=== PATIENT | female | born 1980 | race African-American/Black ===

== ENCOUNTER 2020-04-26 12:36 | Inpatient (IN) | payer BC, OTHER ==
[2020-04-26] MEDS ORDERED: ACETAMINOPHEN TAB 500 MG TAB PO STA (12:53)
--- NOTE | 2020-04-26 13:03 | ED ---
Weakness HPI - General Chief complaint: Weakness Stated complaint: Possible Pneumonia Time Seen by Provider: 04/26/20 12:46 Source: patient, RN notes reviewed Mode of arrival: ambulatory Limitations: no limitations - History of Present Illness Initial comments: This a 40-year-old female presents emergency Department chief complaint of shortness breath, fever, weakness. Patient states that she started having symptoms 8 days ago. She states that she works at [employer] who has a large amount Covid patients. Patient states that she's been so weak that she has not been tested anymore. She states that she's felt short breath, nauseated she did not take any current prescription medications. Denies any known history of lung disease. Patient has not taken any recent Tylenol Motrin for fever. - Related Data Home Medications Medication Instructions Recorded Confirmed No Known Home Medications 04/26/20 04/26/20 Allergies Allergy/AdvReac Type Severity Reaction Status Date / Time No Known Allergies Allergy Verified 04/26/20 20:21 Review of Systems ROS Statement: Those systems with pertinent positive or pertinent negative responses have been documented in the HPI. ROS Other: All systems not noted in ROS Statement are negative. Past Medical History Past Medical History: No Reported History History of Any Multi-Drug Resistant Organisms: None Reported Past Surgical History: Section Past Anesthesia/Blood Transfusion Reactions: No Reported Reaction Past Psychological History: No Psychological Hx Reported Past Alcohol Use History: None Reported Past Drug Use History: None Reported General Exam Limitations: no limitations General appearance: alert, in no apparent distress Head exam: Present: atraumatic, normocephalic, normal inspection Eye exam: Present: normal appearance, PERRL, EOMI. Absent: scleral icterus, conjunctival injection, periorbital swelling ENT exam: Present: normal exam, normal oropharynx, mucous membranes moist Neck exam: Present: normal inspection, full ROM. Absent: tenderness, meningismus, lymphadenopathy Respiratory exam: Present: decreased breath sounds. Absent: normal lung sounds bilaterally, respiratory distress, wheezes, rales, rhonchi, stridor Cardiovascular Exam: Present: normal rhythm, tachycardia, normal heart sounds. Absent: systolic murmur, diastolic murmur, rubs, gallop, clicks GI/Abdominal exam: Present: soft, normal bowel sounds. Absent: distended, tenderness, guarding, rebound, rigid Neurological exam: Present: alert Skin exam: Present: warm, dry, intact, normal color. Absent: rash Course Vital Signs 04/26/20 04/26/20 04/26/20 12:38 14:21 17:34 Temperature 100.5 F H 101.4 F H 98.4 F Pulse Rate 118 H 100 Respiratory 18 18 Rate Blood Pressure 111/71 106/64 O2 Sat by Pulse 82 L 99 Oximetry EKG Findings - EKG Comments: EKG Findings:: EKG for performed at 12:51 sinus tachycardia rate of 119. 128 QRS 82 QT/QTC 320/450 Medical Decision Making - Medical Decision Making Chest x-ray shows diffuse infiltrates. Patient is positive for covid 19. Patient's found to be acutely hypoxic improved on oxygen. Patient was given dexamethasone. Patient will be admitted for pulmonary and infectious disease consult. - Lab Data Result diagrams: 04/26/20 13:31 04/26/20 13:31 Lab Results 04/26/20 04/26/20 04/26/20 Range/Units 12:54 13:31 13:31 WBC 7.0 (3.8-10.6) k/uL RBC 4.99 (3.80-5.40) m/uL Hgb 9.0 L (11.4-16.0) gm/dL Hct 31.2 L (34.0-46.0) % MCV 62.5 L (80.0-100.0) fL MCH 18.0 L (25.0-35.0) pg MCHC 28.8 L (31.0-37.0) g/dL RDW 20.5 H (11.5-15.5) % Plt Count 296 (150-450) k/uL MPV 7.9 Neutrophils % 79 % Lymphocytes % 11 % Monocytes % 8 % Eosinophils % 0 % Basophils % 1 % Neutrophils # 5.6 (1.3-7.7) k/uL Lymphocytes # 0.8 L (1.0-4.8) k/uL Monocytes # 0.5 (0-1.0) k/uL Eosinophils # 0.0 (0-0.7) k/uL Basophils # 0.0 (0-0.2) k/uL Manual Slide Review Performed Hypochromasia Marked Hypochromasia (manual) Present Poikilocytosis Slight Anisocytosis Moderate Microcytosis Marked Target Cells Present Fragmented RBCs Present PT 10.3 (9.0-12.0) sec INR 1.0 (<1.2) APTT 24.3 (22.0-30.0) sec D-Dimer 1.64 H (<0.60) mg/L FEU Sodium (137-145) mmol/L Potassium (3.5-5.1) mmol/L Chloride (98-107) mmol/L Carbon Dioxide (22-30) mmol/L Anion Gap mmol/L BUN (7-17) mg/dL Creatinine (0.52-1.04) mg/dL Est GFR (CKD-EPI)AfAm (>60 ml/min/1.73 sqM) Est GFR (CKD-EPI)NonAf (>60 ml/min/1.73 sqM) Glucose (74-99) mg/dL Plasma Lactic Acid Moreno (0.7-2.0) mmol/L Calcium (8.4-10.2) mg/dL Magnesium (1.6-2.3) mg/dL Total Bilirubin (0.2-1.3) mg/dL AST (14-36) U/L ALT (4-34) U/L Alkaline Phosphatase (38-126) U/L C-Reactive Protein (<10.0) mg/L Total Protein (6.3-8.2) g/dL Albumin (3.5-5.0) g/dL Coronavirus (PCR) Detected A (Not Detectd) 04/26/20 04/26/20 Range/Units 13:31 13:31 WBC (3.8-10.6) k/uL RBC (3.80-5.40) m/uL Hgb (11.4-16.0) gm/dL Hct (34.0-46.0) % MCV (80.0-100.0) fL MCH (25.0-35.0) pg MCHC (31.0-37.0) g/dL RDW (11.5-15.5) % Plt Count (150-450) k/uL MPV Neutrophils % % Lymphocytes % % Monocytes % % Eosinophils % % Basophils % % Neutrophils # (1.3-7.7) k/uL Lymphocytes # (1.0-4.8) k/uL Monocytes # (0-1.0) k/uL Eosinophils # (0-0.7) k/uL Basophils # (0-0.2) k/uL Manual Slide Review Hypochromasia Hypochromasia (manual) Poikilocytosis Anisocytosis Microcytosis Target Cells Fragmented RBCs PT (9.0-12.0) sec INR (<1.2) APTT (22.0-30.0) sec D-Dimer (<0.60) mg/L FEU Sodium 137 (137-145) mmol/L Potassium 4.2 (3.5-5.1) mmol/L Chloride 101 (98-107) mmol/L Carbon Dioxide 32 H (22-30) mmol/L Anion Gap 4 mmol/L BUN 27 H (7-17) mg/dL Creatinine 1.68 H (0.52-1.04) mg/dL Est GFR (CKD-EPI)AfAm 44 (>60 ml/min/1.73 sqM) Est GFR (CKD-EPI)NonAf 38 (>60 ml/min/1.73 sqM) Glucose 135 H (74-99) mg/dL Plasma Lactic Acid Moreno 1.3 (0.7-2.0) mmol/L Calcium 7.8 L (8.4-10.2) mg/dL Magnesium 2.4 H (1.6-2.3) mg/dL Total Bilirubin 0.5 (0.2-1.3) mg/dL AST 40 H (14-36) U/L ALT 7 (4-34) U/L Alkaline Phosphatase 54 (38-126) U/L C-Reactive Protein 83.3 H (<10.0) mg/L Total Protein 6.6 (6.3-8.2) g/dL Albumin 3.1 L (3.5-5.0) g/dL Coronavirus (PCR) (Not Detectd) Disposition Clinical Impression: COVID-19, Hypoxia Disposition: ADMITTED IP TO THIS HOSP Condition: Serious
[2020-04-26] MEDS ORDERED: DEXAMETHASONE SOD PHOSPHATE 4 MG/ML 1 ML VIAL IV STA (13:33)
--- NOTE | 2020-04-26 13:54 | XR ---
EXAMINATION TYPE: XR chest 1V portable DATE OF EXAM: 04/26/2020 COMPARISON: None INDICATION: Cough and congestion TECHNIQUE: Single frontal view of the chest is obtained. FINDINGS: The heart size is somewhat prominent. The pulmonary vasculature is normal. Patchy bilateral lung infiltrates are present can be compatible with atypical pneumonia in the proper clinical setting. IMPRESSION: 1. Bilateral infiltrates suspicious for atypical pneumonia
[2020-04-26] MEDS ORDERED: NALOXONE 0.4 MG/ML 1 ML VIAL IV PRN (14:15)
[2020-04-26] MEDS ORDERED: IBUPROFEN 400 MG TAB PO PRN (14:15)
[2020-04-26] MEDS ORDERED: ACETAMINOPHEN TAB 325 MG TAB PO PRN (14:15)
[2020-04-26] MEDS ORDERED: ONDANSETRON 4 MG/2 ML VIAL IVP PRN (14:15)
[2020-04-26] MEDS: ZINC SULFATE 220 MG CAP PO SCH (14:32)
[2020-04-26 14:35] LABS: Albumin 3.1 g/dL (3.5-5.0); C Reactive Protein 83.3 mg/L (<10.0); Calcium 7.8 mg/dL (8.4-10.2); Magnesium 2.4 mg/dL (1.6-2.3); Potassium 4.2 mmol/L (3.5-5.1); Total Bilirubin 0.5 mg/dL (0.2-1.3); Total Protein 6.6 g/dL (6.3-8.2)
[2020-04-26 14:45] LABS: Partial Thromboplastin Time 24.3 sec (22.0-30.0); Prothrombin Time 10.3 sec (9.0-12.0)
[2020-04-26 14:48] LABS: Anisocytosis Moderate; Basophils % (A) 1 %; Eosinophils % (A) 0 %; HCT 31.2 % (34.0-46.0); Hypochromasia Marked; Lymphocytes # (A) 0.8 k/uL (1.0-4.8); Lymphocytes % (A) 11 %; MCHC 28.8 g/dL (31.0-37.0); MCV 62.5 fL (80.0-100.0); Mean Platelet Volume 7.9; Microcytosis Marked; Monocytes # (A) 0.5 k/uL (0-1.0); Monocytes % (A) 8 %; Neutrophils # (A) 5.6 k/uL (1.3-7.7); Neutrophils % (A) 79 %; Platelet Count 296 k/uL (150-450); Poikilocytosis Slight; RBC 4.99 m/uL (3.80-5.40); RDW 20.5 % (11.5-15.5)
[2020-04-26 14:53] LABS: D-Dimer 1.64 mg/L FEU (<0.60)
[2020-04-26 15:13] LABS: Hypochromasia (M) Present; RBC Fragments Present; Target Cells Present
[2020-04-26] MEDS ORDERED: SODIUM CHLORIDE 0.9% 500 ML 500 ML IV ONE (15:15)
[2020-04-26] MEDS: SODIUM CHLORIDE 0.9% 1,000 ML IV SCH (15:36)
[2020-04-27] MEDS ORDERED: REMDESIVIR 200 MG in SODIUM CHLORIDE 0.9% 250 ML IVPB ONE ×2
[2020-04-27] MEDS: ENOXAPARIN 40 MG/0.4 ML SYRINGE SQ SCH ×2 (00:22→08:46)
[2020-04-27] MEDS: SODIUM CHLORIDE 0.9% 1,000 ML IV SCH ×2 (00:22→17:17)
--- NOTE | 2020-04-27 07:12 | CONS ---
CONSULTATION DATE OF SERVICE: 04/26/2020 REASON FOR CONSULTATION: COVID-19 infection. HISTORY OF PRESENT ILLNESS: The patient is a 40-year-old female presenting to the hospital with chief complaints of increasing shortness of breath, fever and weakness. The patient's symptoms have been going on for about 8 days before the patient presented to the hospital. 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 Patient complaining of feeling very weak, tired and no energy. Patient denies any headache or URI symptoms. She has been complaining of shortness of breath on minimal exertion and has felt nauseated but no vomiting and denies having any diarrhea. The patient has been taking some Motrin for her fever with progressive symptoms. Patient did present to the hospital. On arrival to the ER the patient did have a fever of 101.4 degrees Fahrenheit. The patient was hypoxic with O2 sats of 82% on room air, currently 91% on 3 L nasal cannula. The patient did have a normal white count. Did have lymphopenia. D-dimer was elevated. Creatinine was mildly elevated as well as liver enzymes. Mathias PCR came back positive. The patient did have a chest x- ray bilateral infiltrate so patient with atypical pneumonia. The patient has been admitted to the hospital. Infectious Disease was consulted for further management. REVIEW OF SYSTEMS: Positive points have been mentioned in HPI. Rest of systems are negative. PAST MEDICAL HISTORY: No major illnesses. PAST SURGICAL HISTORY: . SOCIAL HISTORY: The patient denies smoking, drinking, drug use. FAMILY HISTORY: No pertinent findings noticed. ALLERGIES: No known drug allergies. MEDICATIONS: The patient is currently on Tylenol, vitamin C, vitamin D3, dexamethasone, ibuprofen, Narcan, Zofran, IV fluid and zinc sulfate. PHYSICAL EXAMINATION: VITAL SIGNS: Blood pressure 120/58 with a pulse of 89, temperature 97.8, T-max 101.4, she is 99% on 3 L nasal cannula. GENERAL DESCRIPTION: Patient is female lying in bed in no distress. HEENT: Examination shows no pallor or scleral icterus. Oral mucous membrane is dry. NECK: Trachea central, no thyromegaly. LUNGS: Unlabored breathing, coarse breath sounds at the bases bilaterally. No wheeze. HEART: S1-S2, regular rate and rhythm. ABDOMEN: Soft, no tenderness. No guarding or rigidity. EXTREMITIES: No edema of the feet. SKIN: No rash or mass palpable. NEUROLOGICAL: Patient is awake, alert, oriented times three. Mood and affect normal. LABS: Hemoglobin is 9, white count 7.0. D-dimer is 1.64, creatinine 1.68. AST is elevated. Mathias PCR is positive. DIAGNOSTIC IMPRESSION: Patient admitted to the hospital with a fever, hypoxemia. Symptoms have been going on for about a week in this patient with evidence of bilateral infiltrate likely secondary to acute COVID-19 infection. The patient does meet criteria for remdesivir therapy and this will help her, in view of the fever as well as hypoxemia. PLAN: 1. We will start the patient on remdesivir 100 mg x1 followed by 100 mg daily. The patient will be continued on dexamethasone, zinc and will add Lovenox. 2. Droplet isolation and respiratory support. 3. We will follow on her clinical condition and further adjust medication if needed. Thank you for this consultation. Will follow this patient along with you. YEMI / GROVERN: [id number] /
[2020-04-27] MEDS: CHOLECALCIFEROL 25 MCG (1000 IU) TABLET PO SCH (08:46)
[2020-04-27] MEDS: ZINC SULFATE 220 MG CAP PO SCH (08:46)
[2020-04-27] MEDS: DEXAMETHASONE SOD PHOSPHATE 10 MG/ML 1 ML VIAL IV SCH (08:46)
[2020-04-27] MEDS: ASCORBIC ACID 500 MG TAB PO SCH (08:46)
--- NOTE | 2020-04-27 15:44 | P.CNPUL ---
History of Present Illness Consult date: 04/27/20 Requesting physician: Josie Serrano Reason for consult: dyspnea Chief complaint: Shortness of breath, fever, weakness History of present illness: This is a very pleasant 40-year-old obese female patient with no significant past medical history. No home medications. 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 Approximately 9 days ago now she started having increasing shortness of breath, cough, congestion, fever. Chest x-ray reveals bilateral infiltrates suspicious for CoVID 19 pneumonia. She did test positive for the coronavirus. White count 7.0. Hemoglobin 9.0. Lymphocytes 0.8. D-dimer 1.64. Sodium 137. Potassium 4.2. Creatinine 1.68. C-reactive protein 83.3. He is seen today in consultation on the regular medical floor. She is currently resting in bed. Awake and alert in no acute distress. She is still quite dyspneic with minimal exertion. She is requiring 5 L high flow nasal cannula to maintain O2 saturations in the 90s. 0.9 normal saline at 75 ML's per hour. She had not received any vaccines. She was seen by ID services and received Remdesivir just after midnight this morning. She is initiated on Decadron, Lovenox, vitamin supplements. Review of Systems REVIEW OF SYSTEMS: CONSTITUTIONAL: Positive for fatigue weakness, fever. Denies any recent significant weight loss or weight gain. EYES: Denies change in vision. EARS, NOSE, MOUTH, THROAT: Denies headaches, denies sore throat. CARDIOVASCULAR: Denies chest pain, palpitations or syncopal episodes. RESPIRATORY: Positive for shortness of breath, cough, congestion no hemoptysis. GASTROINTESTINAL: Denies change in appetite, denies abdominal pain GENITOURINARY: Denies hematuria, denies infections. MUSKULOSKELETAL: Denies pain, denies swelling. INTEGUMENTARY: Denies rash, denies eczema. NEUROLOGICAL: Denies recent memory loss, no recent seizure activity. PSYCHIATRIC: Denies anxiety, denies depression. HEMATOLOGIC/LYMPHATIC: Denies anemia, denies enlarged lymph nodes. Past Medical History Past Medical History: No Reported History History of Any Multi-Drug Resistant Organisms: None Reported Past Surgical History: Section Additional Past Surgical History / Comment(s): hernia repair Past Anesthesia/Blood Transfusion Reactions: No Reported Reaction Past Psychological History: No Psychological Hx Reported Past Alcohol Use History: None Reported Past Drug Use History: None Reported Medications and Allergies Home Medications Medication Instructions Recorded Confirmed Type No Known Home Medications 04/26/20 04/26/20 History Allergies Allergy/AdvReac Type Severity Reaction Status Date / Time No Known Allergies Allergy Verified 04/26/20 20:21 Physical Exam Vitals: Vital Signs Temp Pulse Resp BP Pulse Ox 04/27/20 14:00 98.5 F 92 20 118/79 96 04/27/20 10:00 99.0 F 95 22 130/84 90 L 04/27/20 08:00 94 L 04/27/20 05:49 98.4 F 86 19 138/80 93 L 04/27/20 02:24 98.5 F 89 125/68 91 L 04/26/20 22:05 97.8 F 89 21 120/58 91 L 04/26/20 18:00 98.7 F 97 20 115/74 92 L 04/26/20 17:34 98.4 F Intake and Output 04/27/20 04/27/20 04/27/20 06:59 14:59 22:59 Intake Total 600 Balance 600 Intake: IV 600 Sodium Chloride 0.9% 1, 600 000 ml @ 75 mls/hr IV . [id number] [facility] Rx#:[id number] Other: # Bowel Movements 2 GENERAL EXAM: Alert, obese, pleasant 40-year-old -[place] female patient, on 5 L nasal cannula, comfortable in no apparent distress. HEAD: Normocephalic. EYES: Normal reaction of pupils, equal size. NOSE: Clear with pink turbinates. THROAT: No erythema or exudates. NECK: No masses, no JVD. CHEST: No chest wall deformity. LUNGS: Equal air entry with bilateral scattered rhonchi, crackles in the posteri or bases. CVS: S1 and S2 normal with no audible murmur, regular rhythm. ABDOMEN: No hepatosplenomegaly, normal bowel sounds, no guarding or rigidity. SPINE: No scoliosis or deformity SKIN: No rashes CENTRAL NERVOUS SYSTEM: No focal deficits, tone is normal in all 4 extremities. EXTREMITIES: There is no peripheral edema. No clubbing, no cyanosis. Peripheral pulses are intact. Results - Laboratory Findings CBC and BMP: 04/26/20 13:31 04/26/20 13:31 PT/INR, D-dimer PT 10.3 sec (9.0-12.0) 04/26/20 13:31 INR 1.0 (<1.2) 04/26/20 13:31 D-Dimer 1.64 mg/L FEU (<0.60) H 04/26/20 13:31 Abnormal lab findings: Abnormal Labs 04/26/20 04/26/20 04/26/20 12:54 13:31 13:31 Hgb 9.0 L Hct 31.2 L MCV 62.5 L MCH 18.0 L MCHC 28.8 L RDW 20.5 H Lymphocytes # 0.8 L D-Dimer 1.64 H Carbon Dioxide BUN Creatinine Glucose Calcium Magnesium AST C-Reactive Protein Albumin Coronavirus (PCR) Detected A 04/26/20 13:31 Hgb Hct MCV MCH MCHC RDW Lymphocytes # D-Dimer Carbon Dioxide 32 H BUN 27 H Creatinine 1.68 H Glucose 135 H Calcium 7.8 L Magnesium 2.4 H AST 40 H C-Reactive Protein 83.3 H Albumin 3.1 L Coronavirus (PCR) - Diagnostic Findings Chest x-ray: image reviewed Assessment and Plan Assessment: 1 Acute hypoxemic respiratory failure secondary to acute CoVID 19 pneumonia 2 Elevated inflammatory markers secondary to above 3 Acute renal failure suspect secondary to dehydration 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 Sharma Chest x-ray and labs reviewed This will be day #2 of Remdesivir Continue Lovenox, dexamethasone, vitamins supplements Repeat chest x-ray, inflammatory markers in the a.m. Titrate the FiO2 as tolerated We will continue to follow and make further recommendations based on her clinical status I, the cosigning physician, performed a history & physical examination of the patient. Lungs sounds with few scattered rhonchi, crackles in the posterior bases. Maintaining good O2 saturations in the 90s on 5 L/m per nasal cannula. I discussed the assessment and plan of care with my nurse practitioner, Fide Burch. I attest to the above consultation as dictated by her. Time with Patient: Greater than 30
--- NOTE | 2020-04-27 15:50 | P.HPIM ---
History of Present Illness H&P Date: 04/26/20 Chief Complaint: Weakness/possible pneumonia 40-year-old female presents emergency Department chief complaint of shortness breath, fever, weakness. Patient states that she started having symptoms 8 days ago. She states that she works at [employer] who has a large number of Covid patients. Patient states that she's been so weak that she has not been tested anymore. She states that she's felt short breath, nauseated she did not take any current prescription medications. Denies any known history of lung disease. Patient has not taken any recent Tylenol Motrin for fever. EKG performed sinus tachycardia rate of 119. 128 QRS 82 QT/QTC 320/450 Chest x-ray shows diffuse infiltrates. Patient is positive for covid 19. Patient's found to be acutely hypoxic improved on oxygen. Patient was given dexamethasone. Patient will be admitted for pulmonary and infectious disease consult. Review of Systems REVIEW OF SYSTEMS: CONSTITUTIONAL: fever, malaise, fatigue. HEENT: No recent visual problems or hearing problems. Denied any sore throat. CARDIOVASCULAR: No chest pain, orthopnea, PND, no palpitations, no syncope. PULMONARY: shortness of breath, no cough, no hemoptysis. GASTROINTESTINAL: No diarrhea, no nausea, no vomiting, no abdominal pain. NEUROLOGICAL: No headaches, no weakness, no numbness. HEMATOLOGICAL: Denies any bleeding or petechiae. GENITOURINARY: Denies any burning micturition, frequency, or urgency. MUSCULOSKELETAL/RHEUMATOLOGICAL: Denies any joint pain, swelling, or any muscle pain. ENDOCRINE: Denies any polyuria or polydipsia. The rest of the 14-point review of systems is negative. Past Medical History Past Medical History: No Reported History History of Any Multi-Drug Resistant Organisms: None Reported Past Surgical History: Section Past Anesthesia/Blood Transfusion Reactions: No Reported Reaction Past Psychological History: No Psychological Hx Reported Past Alcohol Use History: None Reported Past Drug Use History: None Reported Medications and Allergies Home Medications Medication Instructions Recorded Confirmed Type No Known Home Medications 04/26/20 04/26/20 History Allergies Allergy/AdvReac Type Severity Reaction Status Date / Time No Known Allergies Allergy Verified 04/26/20 20:21 Physical Exam Vitals: Vital Signs Temp Pulse Resp BP Pulse Ox 04/26/20 14:21 101.4 F H 100 18 106/64 99 04/26/20 12:38 100.5 F H 118 H 18 111/71 82 L Intake and Output 04/25/20 04/26/20 04/26/20 22:59 06:59 14:59 Other: Weight 127.006 kg - Constitutional General appearance: Present: average body habitus, cooperative, no acute distress - EENT Eyes: Present: anicteric sclerae, EOMI, PERRLA, normal appearance ENT: Present: hearing grossly normal, normal oropharynx Ears: bilateral: normal - Neck Neck: Present: normal ROM. Absent: lymphadenopathy, rigidity, thyromegaly Carotids: negative: bruit present Thyroid: bilateral: normal size, negative: enlarged, nodule - Respiratory Respiratory: bilateral: CTA, negative: rales, rhonchi, wheezing - Cardiovascular Rhythm: regular Heart sounds: normal: S1, S2 Abnormal Heart Sounds: Absent: systolic murmur, diastolic murmur - Gastrointestinal General gastrointestinal: Present: normal bowel sounds, soft. Absent: diste nded, organomegaly, tenderness - Genitourinary Genitourinary Comment(s): deferred - Integumentary Integumentary: Present: normal turgor. Absent: jaundiced, rash, ulcer - Neurologic Neurologic: Present: CNII-XII intact. Absent: focal deficits - Musculoskeletal Musculoskeletal: Present: gait normal, strength equal bilaterally - Psychiatric Psychiatric: Present: A&O x's 3, appropriate affect, intact judgment & insight Results CBC & Chem 7: 04/26/20 13:31 04/26/20 13:31 Labs: Abnormal Lab Results - Last 24 Hours (Table) 04/26/20 04/26/20 Range/Units 12:54 13:31 Carbon Dioxide 32 H (22-30) mmol/L BUN 27 H (7-17) mg/dL Creatinine 1.68 H (0.52-1.04) mg/dL Glucose 135 H (74-99) mg/dL Calcium 7.8 L (8.4-10.2) mg/dL Magnesium 2.4 H (1.6-2.3) mg/dL AST 40 H (14-36) U/L C-Reactive Protein 83.3 H (<10.0) mg/L Albumin 3.1 L (3.5-5.0) g/dL Coronavirus (PCR) Detected A (Not Detectd) Assessment and Plan Assessment: 1. Covid 19 Viral pneumonia - Patient has been placed on telemetry; continue with supplemental oxygen keeping SpO2 greater than 92% - Pulmonary and ID is consulted and patient is started on Remdesivir - Continue Lovenox, dexamethasone, vitamins supplements - Repeat chest x-ray, inflammatory markers in the a.m. - Titrate the FiO2 as tolerated 2. Acute hypoxemic respiratory failure secondary to 1; treatment as outlined in #1 3. Acute renal failure; dehydration; we'll continue with IV fluid therapy and monitor strict BISHOP's, daily weights, renal function and electrolytes; avoid nephrotoxic agents and hypertension 4. Morbid obesity; counseling done on need for weight reduction DVT prophylaxis; subcu Lovenox CODE STATUS; full code
--- NOTE | 2020-04-27 15:54 | P.PN ---
Subjective Progress Note Date: 04/27/20 Principal diagnosis: Acute hypoxemic respiratory failure Acute CoVID 19 pneumonia Acute renal failure/dehydration 40-year-old obese female patient with no significant past medical history. No home medications. 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 Approximately 9 days ago now she started having increasing shortness of breath, cough, congestion, fever. Chest x-ray reveals bilateral infiltrates suspicious for CoVID 19 pneumonia. She did test positive for the coronavirus. White count 7.0. Hemoglobin 9.0. Lymphocytes 0.8. D-dim er 1.64. Sodium 137. Potassium 4.2. Creatinine 1.68. C-reactive protein 83.3. He is seen today in consultation on the regular medical floor. She is currently resting in bed. Awake and alert in no acute distress. She is still quite dyspneic with minimal exertion. She is requiring 5 L high flow nasal cannula to maintain O2 saturations in the 90s. 0.9 normal saline at 75 ML's per hour. She had not received any vaccines. She was seen by ID services and received Remdesivir just after midnight this morning. She is initiated on Decadron, Lovenox, vitamin supplements. 04/27/2020 Patient is seen and evaluated resting comfortably in bed; continues to report shortness of breath which is worse on activity Vital signs are reviewed with temperature of 99, pulse 82, respiration 20 and SpO2 of 96% on 5 L She was seen by ID services and received Remdesivir just after midnight this morning. She is initiated on Decadron, Lovenox, vitamin supplements. Objective - Vital Signs Vital signs: Vital Signs Temp 99.0 F 04/27/20 10:00 Pulse 95 04/27/20 10:00 Resp 22 04/27/20 10:00 BP 130/84 04/27/20 10:00 Pulse Ox 90 L 04/27/20 10:00 Intake & Output 04/26/20 04/27/20 04/27/20 18:59 06:59 18:59 Weight 127.006 kg 127.006 kg Other: Voiding Method Toilet - Exam PHYSICAL EXAMINATION: GENERAL: The patient is alert and oriented x3, not in any acute distress. Well developed, well nourished. HEENT: Pupils are round and equally reacting to light. EOMI. No scleral icterus. No conjunctival pallor. Normocephalic, atraumatic. No pharyngeal erythema. No thyromegaly. CARDIOVASCULAR: S1 and S2 present. No murmurs, rubs, or gallops. PULMONARY: Chest is clear to auscultation, no wheezing or crackles. ABDOMEN: Soft, nontender, nondistended, normoactive bowel sounds. No palpable organomegaly. MUSCULOSKELETAL: No joint swelling or deformity. EXTREMITIES: No cyanosis, clubbing, or pedal edema. NEUROLOGICAL: Gross neurological examination did not reveal any focal deficits. SKIN: No rashes. - Labs CBC & Chem 7: 04/26/20 13:31 04/26/20 13:31 Labs: Abnormal Lab Results - Last 24 Hours (Table) 04/26/20 04/26/20 04/26/20 Range/Units 12:54 13:31 13:31 Hgb 9.0 L (11.4-16.0) gm/dL Hct 31.2 L (34.0-46.0) % MCV 62.5 L (80.0-100.0) fL MCH 18.0 L (25.0-35.0) pg MCHC 28.8 L (31.0-37.0) g/dL RDW 20.5 H (11.5-15.5) % Lymphocytes # 0.8 L (1.0-4.8) k/uL D-Dimer 1.64 H (<0.60) mg/L FEU Carbon Dioxide (22-30) mmol/L BUN (7-17) mg/dL Creatinine (0.52-1.04) mg/dL Glucose (74-99) mg/dL Calcium (8.4-10.2) mg/dL Magnesium (1.6-2.3) mg/dL AST (14-36) U/L C-Reactive Protein (<10.0) mg/L Albumin (3.5-5.0) g/dL Coronavirus (PCR) Detected A (Not Detectd) 04/26/20 Range/Units 13:31 Hgb (11.4-16.0) gm/dL Hct (34.0-46.0) % MCV (80.0-100.0) fL MCH (25.0-35.0) pg MCHC (31.0-37.0) g/dL RDW (11.5-15.5) % Lymphocytes # (1.0-4.8) k/uL D-Dimer (<0.60) mg/L FEU Carbon Dioxide 32 H (22-30) mmol/L BUN 27 H (7-17) mg/dL Creatinine 1.68 H (0.52-1.04) mg/dL Glucose 135 H (74-99) mg/dL Calcium 7.8 L (8.4-10.2) mg/dL Magnesium 2.4 H (1.6-2.3) mg/dL AST 40 H (14-36) U/L C-Reactive Protein 83.3 H (<10.0) mg/L Albumin 3.1 L (3.5-5.0) g/dL Coronavirus (PCR) (Not Detectd) Assessment and Plan Assessment: 1. Covid 19 Viral pneumonia - Patient has been placed on telemetry; continue with supplemental oxygen keeping SpO2 greater than 92% - Pulmonary and ID is consulted and patient is started on Remdesivir - Continue Lovenox, dexamethasone, vitamins supplements - Repeat chest x-ray, inflammatory markers in the a.m. - Titrate the FiO2 as tolerated 2. Acute hypoxemic respiratory failure secondary to 1; treatment as outlined in #1 3. Acute renal failure; dehydration; we'll continue with IV fluid therapy and monitor strict BISHOP's, daily weights, renal function and electrolytes; avoid nephrotoxic agents and hypertension 4. Morbid obesity; counseling done on need for weight reduction DVT prophylaxis; subcu Lovenox CODE STATUS; full code
[2020-04-27 20:02] LABS: Appearance,Urine Clear (Clear); Bacteria,Urine Rare /hpf; Bilirubin,Urine Negative (Negative); Blood,Urine Small (Negative); Cellular Casts,Urine 1 /lpf (0); Color,Urine Yellow; Glucose,Urine (UA) Negative (Negative); Hyaline Casts,Urine 4 /lpf (0-2); Ketones,Urine Negative (Negative); Leukocyte Esterase,Urine Negative (Negative); Mucus,Urine Rare /hpf; Nitrite,Urine Negative (Negative); Protein,Urine 3+ (Negative); RBC,Urine 4 /hpf (0-5); Specific Gravity,Urine 1.022 (1.001-1.035); Squamous Epithelial Cell,Urine <1 /hpf (0-4); Urobilinogen,Urine <2.0 mg/dL (<2.0); WBC,Urine 5 /hpf (0-5)
[2020-04-27] MEDS: MELATONIN 3 MG TABLET PO SCH (20:10)
[2020-04-27] MEDS: REMDESIVIR 100 MG in SODIUM CHLORIDE 0.9% 250 ML IVPB SCH (20:10)
--- NOTE | 2020-04-27 23:29 | PN ---
PROGRESS NOTE DATE OF SERVICE: 04/27/2020. REASON FOR FOLLOW UP: Covid 19 infection. INTERVAL HISTORY: Patient is currently afebrile and the patient is breathing slightly comfortably. The patient denies having any chest pain, no shortness of breath. She did have a cough, not bringing up any sputum. No nausea, no vomiting. No abdominal pain. No diarrhea. PHYSICAL EXAMINATION: Blood pressure 126/84 with a pulse of 80, temperature 98.3. She is 92% on 4 L nasal cannula. General description is a middle-aged female lying in bed in no distress. Respiratory system: Unlabored breathing, decreased intensity of breath sounds. No wheeze. Heart S1, S2. Regular rate and rhythm. Abdomen soft, no tenderness. LABS: BUN of 9, creatinine 7.0, BUN of 27, creatinine 1.68, hemoglobin 9, white count 7.0. DIAGNOSTIC IMPRESSION AND PLAN: Patient with acute COVID-19 infection. This patient currently covered with dexamethasone, Lovenox, zinc and respiratory support and monitor clinical course closely. MMODL / IJN: [id number] /
--- NOTE | 2020-04-28 07:20 | XR ---
EXAMINATION TYPE: XR chest 1V portable DATE OF EXAM: 04/28/2020 COMPARISON: 04/26/2020 HISTORY: Covid 19 pneumonia TECHNIQUE: Single frontal view of the chest is obtained. FINDINGS: Patchy perihilar and basilar infiltrates persist without significant change. The cardiac silhouette size is within normal limits. The osseous structures are intact. IMPRESSION: 1. Patchy perihilar and basilar infiltrates persist without significant change.
[2020-04-28] MEDS: CHOLECALCIFEROL 25 MCG (1000 IU) TABLET PO SCH (08:32)
[2020-04-28] MEDS: ZINC SULFATE 220 MG CAP PO SCH (08:32)
[2020-04-28] MEDS: ASCORBIC ACID 500 MG TAB PO SCH (08:32)
[2020-04-28] MEDS: DEXAMETHASONE SOD PHOSPHATE 10 MG/ML 1 ML VIAL IV SCH (08:32)
[2020-04-28] MEDS: ENOXAPARIN 40 MG/0.4 ML SYRINGE SQ SCH (08:33)
[2020-04-28] MEDS: SODIUM CHLORIDE 0.9% 1,000 ML IV SCH ×2 (08:33→21:36)
--- NOTE | 2020-04-28 12:00 | P.PN ---
Subjective Progress Note Date: 04/28/20 This is a very pleasant 40-year-old obese female patient with no significant past medical history. No home medications. 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 Approximately 9 days ago now she started having increasing shortness of breath, cough, congestion, fever. Chest x-ray reveals bilateral infiltrates suspicious for CoVID 19 pneumonia. She did test positive for the coronavirus. White count 7.0. Hemoglobin 9.0. Lymphocytes 0.8. D-dimer 1.64. Sodium 137. Potassium 4.2. Creatinine 1.68. C-reactive protein 83.3. He is seen today in consultation on the regular medical floor. She is currently resting in bed. Awake and alert in no acute distress. She is still quite dyspneic with minimal exertion. She is requiring 5 L high flow nasal cannula to maintain O2 saturations in the 90s. 0.9 normal saline at 75 ML's per hour. She had not received any vaccines. She was seen by ID services and received Remdesivir just after midnight this morning. She is initiated on Decadron, Lovenox, vitamin supplements. 04/28/2020 this patient was hospitalized for acute hypoxic respiratory failure secondary to obesity-related pneumonia and the patient is being seen in follow- up. The patient is currently on a combination of steroids in the form of Deca dron and the patient is also receiving Remdesivir. The patient is morbidly obese with a BMI of 40. The patient had an acute kidney injury at time of admission and currently is being hydrated. 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 Otherwise, the patient is currently on oxygen at 5 L of Oxymizer nasal cannula with a pulse ox of 91%. The chest x-ray showing bilateral infiltrates suspicious for pneumonia. The inflammatory markers will be monitored. The patient is also on Lovenox for DVT prophylaxis for d-dimer of 1.64. She is currently receiving Lovenox 40 mg subcu every 24 hours. The chest x-ray still showing bilateral pulmonary infiltrates. There may be some slight improvement in aeration of the lung bases bilaterally. There are renal function is to be repeated as the patient's creatinine at time of admission was at 1.68. The patient remains on IV fluids with 35 mL an hour of normal saline. Objective - Vital Signs Vital signs: Vital Signs Temp 98.0 F 04/28/20 09:45 Pulse 85 04/28/20 09:45 Resp 20 04/28/20 09:45 BP 144/86 04/28/20 09:45 Pulse Ox 96 04/28/20 09:45 Intake & Output 04/27/20 04/28/20 04/28/20 18:59 06:59 18:59 Intake Total 600 Balance 600 Intake: IV 600 Sodium Chloride 0.9% 1, 600 000 ml @ 75 mls/hr IV . [id number] [facility] Rx#:[id number] Other: Voiding Method Toilet # Voids 3 # Bowel Movements 2 - Exam GENERAL EXAM: Alert, obese, pleasant 40-year-old -[place] female patient, on 5 L nasal cannula, comfortable in no apparent distress. HEAD: Normocephalic. EYES: Normal reaction of pupils, equal size. NOSE: Clear with pink turbinates. THROAT: No erythema or exudates. NECK: No masses, no JVD. CHEST: No chest wall deformity. LUNGS: Equal air entry with bilateral scattered rhonchi, crackles in the posterior bases. CVS: S1 and S2 normal with no audible murmur, regular rhythm. ABDOMEN: No hepatosplenomegaly, normal bowel sounds, no guarding or rigidity. SPINE: No scoliosis or deformity SKIN: No rashes CENTRAL NERVOUS SYSTEM: No focal deficits, tone is normal in all 4 extremities. EXTREMITIES: There is no peripheral edema. No clubbing, no cyanosis. Peripheral pulses are intact. - Labs CBC & Chem 7: 04/26/20 13:31 04/26/20 13:31 Labs: Abnormal Lab Results - Last 24 Hours (Table) 04/27/20 04/28/20 Range/Units 19:01 07:38 D-Dimer 1.93 H (<0.60) mg/L FEU Urine Protein 3+ H (Negative) Urine Blood Small H (Negative) Urine Bacteria Rare H (None) /hpf Hyaline Casts 4 H (0-2) /lpf Urine Mucus Rare H (None) /hpf Microbiology - Last 24 Hours (Table) 04/27/20 19:01 Urine Culture - Preliminary Urine,Clean Catch Assessment and Plan Plan: 1 Acute hypoxemic respiratory failure secondary to acute CoVID 19 pneumonia, currently on 5 L of oxygen by nasal cannula. Currently the patient is on a combination of Decadron, Remdesivir, and the patient is also on Lovenox for DVT prophylaxis. 2 Elevated inflammatory markers secondary to above 3 Acute renal failure suspect secondary to dehydration, creatinine is at 1.68 and the patient is currently being hydrated. 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 Titrate the FiO2 as tolerated We will continue to follow and make further recommendations based on her clinical status
[2020-04-28 12:13] LABS: African American GFR (CKD) 57 (>60 ml/min/1.73 sqM); Anion Gap 9 mmol/L; Blood Urea Nitrogen 40 mg/dL (7-17); Carbon Dioxide 26 mmol/L (22-30); Chloride 105 mmol/L (98-107); Glucose 125 mg/dL (74-99); Non-African American GFR(CKD) 49 (>60 ml/min/1.73 sqM); Potassium 4.4 mmol/L (3.5-5.1); Sodium 140 mmol/L (137-145)
[2020-04-28 13:19] LABS: C Reactive Protein 5.7 mg/dL (0.0-0.8)
[2020-04-28 15:33] VITALS: BMI 40.1
[2020-04-28] MEDS: MELATONIN 3 MG TABLET PO SCH (20:28)
[2020-04-28] MEDS: REMDESIVIR 100 MG in SODIUM CHLORIDE 0.9% 250 ML IVPB SCH (20:28)
--- NOTE | 2020-04-28 23:32 | P.PN ---
Subjective Progress Note Date: 04/28/20 Principal diagnosis: Acute hypoxemic respiratory failure Acute CoVID 19 pneumonia Acute renal failure/dehydration 40-year-old obese female patient with no significant past medical history. No home medications. 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 Approximately 9 days ago now she started having increasing shortness of breath, cough, congestion, fever. Chest x-ray reveals bilateral infiltrates suspicious for CoVID 19 pneumonia. She did test positive for the coronavirus. White count 7.0. Hemoglobin 9.0. Lymphocytes 0.8. D-dimer 1.64. Sodium 137. Potassium 4.2. Creatinine 1.68. C-reactive protein 83.3. He is seen today in consultation on the regular medical floor. She is currently resting in bed. Awake and alert in no acute distress. She is still quite dyspneic with minimal exertion. She is requiring 5 L high flow nasal cannula to maintain O2 saturations in the 90s. 0.9 normal saline at 75 ML's per hour. She had not received any vaccines. She was seen by ID services and received Remdesivir just after midnight this morning. She is initiated on Decadron, Lovenox, vitamin supplements. 04/27/2020 Patient is seen and evaluated resting comfortably in bed; continues to report shortness of breath which is worse on activity Vital signs are reviewed with temperature of 99, pulse 82, respiration 20 and SpO2 of 96% on 5 L She was seen by ID services and received Remdesivir just after midnight this morning. She is initiated on Decadron, Lovenox, vitamin supplements. 04/28/2020 Patient is currently sitting in a chair comfortably. Awake alert and oriented x3. On oxygen at 5 L via nasal cannula. Chest x-ray showed bilateral infiltrates suspicious for pneumonia. Patient is being continued on remdesivir course. Also on Lovenox subcu, dexamethasone 6 mg daily and also on mult ivitamins. Continued on droplet and contact precautions. Laboratory data showed BUN 40 and creatinine 1.37. Patient is able to tolerate oral diet slowly and IV fluids will be changed to KVO. See have elevated inflammatory markers. D-dimer is 1.93 today. Pulmonary is on board. Current medications reviewed. Objective - Vital Signs Vital signs: Vital Signs Temp 98.0 F 04/28/20 14:00 Pulse 83 04/28/20 14:00 Resp 22 04/28/20 14:00 BP 131/75 04/28/20 14:00 Pulse Ox 97 04/28/20 14:00 Intake & Output 04/27/20 04/28/20 04/28/20 18:59 06:59 18:59 Intake Total 600 160 Balance 600 160 Weight 127.006 kg Intake: IV 600 160 Sodium Chloride 0.9% 1, 600 160 000 ml @ 20 mls/hr IV . Q24H [facility] Rx#:[id number] Other: Voiding Method Toilet # Voids 3 # Bowel Movements 2 - Exam PHYSICAL EXAMINATION: GENERAL: The patient is alert and oriented x3, not in any acute distress. Well developed, well nourished. HEENT: Pupils are round and equally reacting to light. EOMI. No scleral icterus. No conjunctival pallor. Normocephalic, atraumatic. No pharyngeal erythema. No thyromegaly. CARDIOVASCULAR: S1 and S2 present. No murmurs, rubs, or gallops. PULMONARY: Chest is clear to auscultation, no wheezing or crackles. ABDOMEN: Soft, nontender, nondistended, normoactive bowel sounds. No palpable organomegaly. MUSCULOSKELETAL: No joint swelling or deformity. EXTREMITIES: No cyanosis, clubbing, or pedal edema. NEUROLOGICAL: Gross neurological examination did not reveal any focal deficits. SKIN: No rashes. - Labs CBC & Chem 7: 04/26/20 13:31 04/28/20 06:31 Labs: Abnormal Lab Results - Last 24 Hours (Table) 04/27/20 04/28/20 04/28/20 Range/Units 19:01 06:31 06:31 D-Dimer (<0.60) mg/L FEU BUN 40 H (7-17) mg/dL Creatinine 1.37 H (0.52-1.04) mg/dL Glucose 125 H (74-99) mg/dL Calcium 8.0 L (8.4-10.2) mg/dL Lactate Dehydrogenase 981 H (120-246) U/L C-Reactive Protein 5.7 H (0.0-0.8) mg/dL Urine Protein 3+ H (Negative) Urine Blood Small H (Negative) Urine Bacteria Rare H (None) /hpf Hyaline Casts 4 H (0-2) /lpf Urine Mucus Rare H (None) /hpf 04/28/20 Range/Units 07:38 D-Dimer 1.93 H (<0.60) mg/L FEU BUN (7-17) mg/dL Creatinine (0.52-1.04) mg/dL Glucose (74-99) mg/dL Calcium (8.4-10.2) mg/dL Lactate Dehydrogenase (120-246) U/L C-Reactive Protein (0.0-0.8) mg/dL Urine Protein (Negative) Urine Blood (Negative) Urine Bacteria (None) /hpf Hyaline Casts (0-2) /lpf Urine Mucus (None) /hpf Microbiology - Last 24 Hours (Table) 04/27/20 19:01 Urine Culture - Preliminary Urine,Clean Catch Assessment and Plan Assessment: 1. Covid 19 Viral pneumonia - Patient has been placed on telemetry; continue with supplemental oxygen keeping SpO2 greater than 92%. on 4l now - Pulmonary and ID is consulted and patient is started on Remdesivir - Continue Lovenox, dexamethasone, vitamins supplements - Repeat inflammatory markers in the a.m. - Titrate the FiO2 as tolerated 2. Acute hypoxemic respiratory failure secondary to 1; treatment as outlined in #1 3. Acute renal failure; dehydration; we'll continue with IV fluid therapy and monitor strict BISHOP's, daily weights, renal function and electrolytes; avoid nephrotoxic agents and hypertension 4. Morbid obesity; counseling done on need for weight reduction DVT prophylaxis; subcu Lovenox CODE STATUS; full code Time with Patient: Greater than 30
--- NOTE | 2020-04-29 01:06 | PN ---
PROGRESS NOTE DATE OF SERVICE: 04/28/2020 REASON FOR FOLLOWUP: COVID-19 pneumonia. INTERVAL HISTORY: The patient is currently afebrile. The patient is breathing more comfortably. The patient denies having any chest pain. Occasional cough. No abdominal pain. No diarrhea. PHYSICAL EXAMINATION: Blood pressure is 141/89, pulse of 79, temperature 98.4. She is 97% on 4 L nasal cannula. General description is a middle-aged female lying in bed in no distress. Respiratory system: Unlabored breathing, decreased intensity in breath sounds in the base, with no wheeze. Heart S1, S2. Regular rate and rhythm. ABDOMEN: Soft, no tenderness. LABS: Hemoglobin is 9, white count 7.0. BUN of 14, creatinine 1.37. DIAGNOSTIC IMPRESSION/PLAN: Patient with acute COVID-19 infection in this patient currently covered with Remdesivir, dexamethasone, Lovenox and zinc, ascorbic acid, to continue along with respiratory support and monitor clinical course closely. MMODL / IJN: [id number] /
[2020-04-29] MEDS: DEXAMETHASONE SOD PHOSPHATE 10 MG/ML 1 ML VIAL IV SCH (08:24)
[2020-04-29] MEDS: ZINC SULFATE 220 MG CAP PO SCH (08:24)
[2020-04-29] MEDS: CHOLECALCIFEROL 25 MCG (1000 IU) TABLET PO SCH (08:24)
[2020-04-29] MEDS: ASCORBIC ACID 500 MG TAB PO SCH (08:24)
[2020-04-29] MEDS: ENOXAPARIN 40 MG/0.4 ML SYRINGE SQ SCH (08:25)
[2020-04-29 09:29] LABS: African American GFR (CKD) 73.8 (60.0-200.0); Anion Gap 9.1 mmol/L (4.00-12.00); BUN/Creat Ratio 32.73 Ratio (12.00-20.00); Calcium 8.1 mg/dL (8.7-10.3); Carbon Dioxide 23.9 mmol/L (21.6-31.8); Non-African American GFR(CKD) 63.6 (60.0-200.0); Potassium 4.8 mmol/L (3.5-5.5)
--- NOTE | 2020-04-29 10:04 | XR ---
EXAMINATION TYPE: XR chest 1V portable DATE OF EXAM: 04/29/2020 COMPARISON: Chest x-ray dated 04/28/2020 HISTORY: Covid pneumonia TECHNIQUE: Single frontal view of the chest is obtained. FINDINGS: Patchy bilateral airspace disease is somewhat improved compared to prior exam. Cardiac med iastinal silhouette is stable. No evident pneumothorax or pleural effusion. Lung volumes are low. IMPRESSION: There is some improvement in aeration.
--- NOTE | 2020-04-29 12:10 | P.PN ---
Subjective Progress Note Date: 04/29/20 This is a very pleasant 40-year-old obese female patient with no significant past medical history. No home medications. 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 Approximately 9 days ago now she started having increasing shortness of breath, cough, congestion, fever. Chest x-ray reveals bilateral infiltrates suspicious for CoVID 19 pneumonia. She did test positive for the coronavirus. White count 7.0. Hemoglobin 9.0. Lymphocytes 0.8. D-dimer 1.64. Sodium 137. Potassium 4.2. Creatinine 1.68. C-reactive protein 83.3. He is seen today in consultation on the regular medical floor. She is currently resting in bed. Awake and alert in no acute distress. She is still quite dyspneic with minimal exertion. She is requiring 5 L high flow nasal cannula to maintain O2 saturations in the 90s. 0.9 normal saline at 75 ML's per hour. She had not received any vaccines. She was seen by ID services and received Remdesivir just after midnight this morning. She is initiated on Decadron, Lovenox, vitamin supplements. 04/28/2020 this patient was hospitalized for acute hypoxic respiratory failure secondary to obesity-related pneumonia and the patient is being seen in follow- up. The patient is currently on a combination of steroids in the form of Deca dron and the patient is also receiving Remdesivir. The patient is morbidly obese with a BMI of 40. The patient had an acute kidney injury at time of admission and currently is being hydrated. 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 Otherwise, the patient is currently on oxygen at 5 L of Oxymizer nasal cannula with a pulse ox of 91%. The chest x-ray showing bilateral infiltrates suspicious for pneumonia. The inflammatory markers will be monitored. The patient is also on Lovenox for DVT prophylaxis for d-dimer of 1.64. She is currently receiving Lovenox 40 mg subcu every 24 hours. The chest x-ray still showing bilateral pulmonary infiltrates. There may be some slight improvement in aeration of the lung bases bilaterally. There are renal function is to be repeated as the patient's creatinine at time of admission was at 1.68. The patient remains on IV fluids with 35 mL an hour of normal saline. 04/29/2020, I'm seeing the patient for a follow-up. The patient is currently on 4 L of oxygen by nasal cannula. She is afebrile. She is morbidly obese female patient who carries a body mass index of 40 and she has Covid activated pneumonia. She is currently on a combination of Decadron and the REM and she is on day #4. The blood work from today is showing a d-dimer of 3.5 and the patient is on a higher dose of Lovenox which is 60 mg subcutaneous twice a day. She is also demonstrating a normal electrolytes, normal renal function, inflammatory markers are done yesterday and there were not repeated today. Overall condition is stable for now. Chest x-ray findings from today is showing probably some limited improvement in the bilateral pulmonary infiltrates knowing that there is some improved aeration. She remains on IV fluids with normal saline at the rate of KVO. No other significant events overnight. Objective - Vital Signs Vital signs: Vital Signs Temp 98.0 F 04/29/20 09:48 Pulse 102 H 04/29/20 11:57 Resp 18 04/29/20 11:57 BP 129/79 04/29/20 10:06 Pulse Ox 93 L 04/29/20 11:57 Intake & Output 04/28/20 04/29/20 04/29/20 18:59 06:59 18:59 Intake Total 160 Balance 160 Weight 127.006 kg Intake: IV 160 Sodium Chloride 0.9% 1, 160 000 ml @ 20 mls/hr IV . Q24H [facility] Rx#:[id number] Other: Voiding Method Toilet Toilet - Exam GENERAL EXAM: Alert, obese, pleasant 40-year-old -[place] female patient, on 4 L nasal cannula, comfortable in no apparent distress. HEAD: Normocephalic. EYES: Normal reaction of pupils, equal size. NOSE: Clear with pink turbinates. THROAT: No erythema or exudates. NECK: No masses, no JVD. CHEST: No chest wall deformity. LUNGS: Equal air entry with bilateral scattered rhonchi, crackles in the posterior bases. CVS: S1 and S2 normal with no audible murmur, regular rhythm. ABDOMEN: No hepatosplenomegaly, normal bowel sounds, no guarding or rigidity. SPINE: No scoliosis or deformity SKIN: No rashes CENTRAL NERVOUS SYSTEM: No focal deficits, tone is normal in all 4 extremities. EXTREMITIES: There is no peripheral edema. No clubbing, no cyanosis. Peripheral pulses are intact. - Labs CBC & Chem 7: 04/26/20 13:31 04/29/20 06:23 Labs: Abnormal Lab Results - Last 24 Hours (Table) 04/28/20 04/28/20 04/29/20 Range/Units 06:31 06:31 06:23 D-Dimer 3.50 H (<0.60) mg/L FEU BUN 40 H (7-17) mg/dL Creatinine 1.37 H (0.52-1.04) mg/dL BUN/Creatinine Ratio (12.00-20.00) Ratio Glucose 125 H (74-99) mg/dL Calcium 8.0 L (8.4-10.2) mg/dL Lactate Dehydrogenase 981 H (120-246) U/L C-Reactive Protein 5.7 H (0.0-0.8) mg/dL 04/29/20 Range/Units 06:23 D-Dimer (<0.60) mg/L FEU BUN 36.0 H (7-17) mg/dL Creatinine (0.52-1.04) mg/dL BUN/Creatinine Ratio 32.73 H (12.00-20.00) Ratio Glucose (74-99) mg/dL Calcium 8.1 L (8.4-10.2) mg/dL Lactate Dehydrogenase (120-246) U/L C-Reactive Protein (0.0-0.8) mg/dL Microbiology - Last 24 Hours (Table) 04/27/20 19:01 Urine Culture - Final Urine,Clean Catch Assessment and Plan Plan: 1 Acute hypoxemic respiratory failure secondary to acute CoVID 19 pneumonia, currently on 4 L of oxygen by nasal cannula. Currently the patient is on a combination of Decadron, Remdesivir #4, and the patient is also on Lovenox for DVT prophylaxis. 2 Elevated inflammatory markers secondary to above 3 Acute renal failure suspect secondary to dehydration, creatinine is at 1.68 and the patient is currently being hydrated. 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 Repeat inflammatory markers tomorrow Titrate the FiO2 as tolerated We will continue to follow and make further recommendations based on her clini dash status
[2020-04-29] MEDS: MELATONIN 3 MG TABLET PO SCH (20:08)
[2020-04-29] MEDS: ENOXAPARIN 60 MG/0.6 ML SYRINGE SQ SCH (20:09)
[2020-04-29] MEDS: REMDESIVIR 100 MG in SODIUM CHLORIDE 0.9% 250 ML IVPB SCH (20:09)
[2020-04-29] MEDS: SODIUM CHLORIDE 0.9% 1,000 ML IV SCH (20:09)
[2020-04-30 00:10] LABS: Glucose,Whole Blood 167 mg/dL (75-99)
--- NOTE | 2020-04-30 01:18 | PN ---
PROGRESS NOTE DATE OF SERVICE: 04/29/2020 REASON FOR FOLLOWUP: COVID-19 pneumonia. INTERVAL HISTORY: Patient is currently afebrile. Patient is breathing more comfortably. Patient denies having any chest pain, shortness of breath. Occasional cough. No nausea. No vomiting. No abdominal pain. No diarrhea. PHYSICAL EXAMINATION: Blood pressure 136/79, pulse of 91, temperature is 97.6. She is 96% on 4 L nasal cannula. General description: The patient is a middle-aged female up in the bed in no distress. Respiratory system: Unlabored breathing, decreased intensity in breath sounds in the base, with no wheeze. Heart S1, S2. Regular rate and rhythm. Abdomen: Soft, no tenderness. LABS: Hemoglobin 9, white count 7.0. BUN of 36, creatinine 1.1. DIAGNOSTIC IMPRESSION AND PLAN: Patient with acute COVID-19 pneumonia in this patient currently on Remdesivir, Lovenox, dexamethasone, zinc to continue along with respiratory support. Monitor clinical course closely. MMODL / IJN: [id number] /
[2020-04-30] MEDS: ASCORBIC ACID 500 MG TAB PO SCH (08:41)
[2020-04-30] MEDS: ENOXAPARIN 60 MG/0.6 ML SYRINGE SQ SCH ×2 (08:41→20:03)
[2020-04-30] MEDS: ZINC SULFATE 220 MG CAP PO SCH (08:41)
[2020-04-30] MEDS: CHOLECALCIFEROL 25 MCG (1000 IU) TABLET PO SCH (08:42)
[2020-04-30] MEDS: DEXAMETHASONE SOD PHOSPHATE 10 MG/ML 1 ML VIAL IV SCH (08:42)
[2020-04-30 12:05] LABS: Anisocytosis (M) 3+; Basophils # (A) 0.02 X 10*3/uL (0.00-0.10); Basophils % (A) 0.2 %; Eosinophils # (A) 0 X 10*3/uL (0.04-0.35); Eosinophils % (A) 0 %; HCT 32.5 % (37.2-46.3); HGB 8.4 g/dL (12.0-15.0); Hypochromasia (M) 2+; Lymphocytes # (A) 2.05 X 10*3/uL (0.90-5.00); Lymphocytes % (A) 24.1 %; MCH 17.3 pg (27.0-32.0); MCHC 25.8 g/dL (32.0-37.0); MCV 66.9 fL (80.0-97.0); Microcytosis (M) 2+; Monocytes # (A) 1.12 X 10*3/uL (0.20-1.00); Monocytes % (A) 13.1 %; Neutrophils # (A) 5.13 X 10*3/uL (1.80-7.70); Neutrophils % (A) 60.3 %; Platelet Count 465 X 10*3/uL (140-440); RBC 4.86 X 10*6/uL (4.10-5.20); RDW 26.2 % (11.5-14.5); WBC 8.52 X 10*3/uL (4.50-10.00)
[2020-04-30 13:12] LABS: African American GFR (CKD) 82.8 (60.0-200.0); Anion Gap 12.5 mmol/L (4.00-12.00); Calcium 8.2 mg/dL (8.7-10.3); Carbon Dioxide 22.5 mmol/L (21.6-31.8); Non-African American GFR(CKD) 71.4 (60.0-200.0); Potassium 4.7 mmol/L (3.5-5.5)
--- NOTE | 2020-04-30 13:54 | P.PN ---
Subjective Progress Note Date: 04/30/20 This is a very pleasant 40-year-old obese female patient with no significant past medical history. No home medications. She does work at a [employer] where patients have been positive for CoVID 19. Approximately 9 days ago now she started having increasing shortness of breath, cough, congestion, fever. Chest x-ray reveals bilateral infiltrates suspicious for CoVID 19 pneumonia. She did test positive for the coronavirus. White count 7.0. Hemoglobin 9.0. Lymphocytes 0.8. D-dimer 1.64. Sodium 137. Potassium 4.2. Creatinine 1.68. C-reactive protein 83.3. He is seen today in consultation on the regular medical floor. She is currently resting in bed. Awake and alert in no acute distress. She is still quite dyspneic with minimal exertion. She is requiring 5 L high flow nasal cannula to maintain O2 saturations in the 90s. 0.9 normal saline at 75 ML's per hour. She had not received any vaccines. She was seen by ID services and received Remdesivir just after midnight this morning. She is initiated on Decadron, Lovenox, vitamin supplements. 04/28/2020 this patient was hospitalized for acute hypoxic respiratory failure secondary to obesity-related pneumonia and the patient is being seen in follow- up. The patient is currently on a combination of steroids in the form of Deca dron and the patient is also receiving Remdesivir. The patient is morbidly obese with a BMI of 40. The patient had an acute kidney injury at time of admission and currently is being hydrated. 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 Otherwise, the patient is currently on oxygen at 5 L of Oxymizer nasal cannula with a pulse ox of 91%. The chest x-ray showing bilateral infiltrates suspicious for pneumonia. The inflammatory markers will be monitored. The patient is also on Lovenox for DVT prophylaxis for d-dimer of 1.64. She is currently receiving Lovenox 40 mg subcu every 24 hours. The chest x-ray still showing bilateral pulmonary infiltrates. There may be some slight improvement in aeration of the lung bases bilaterally. There are renal function is to be repeated as the patient's creatinine at time of admission was at 1.68. The patient remains on IV fluids with 35 mL an hour of normal saline. 04/29/2020, I'm seeing the patient for a follow-up. The patient is currently on 4 L of oxygen by nasal cannula. She is afebrile. She is morbidly obese female patient who carries a body mass index of 40 and she has Covid activated pneumonia. She is currently on a combination of Decadron and the REM and she is on day #4. The blood work from today is showing a d-dimer of 3.5 and the patient is on a higher dose of Lovenox which is 60 mg subcutaneous twice a day. She is also demonstrating a normal electrolytes, normal renal function, inflammatory markers are done yesterday and there were not repeated today. Overall condition is stable for now. Chest x-ray findings from today is showing probably some limited improvement in the bilateral pulmonary infiltrates knowing that there is some improved aeration. She remains on IV fluids with normal saline at the rate of KVO. No other significant events overnight. 04/30/2020 the patient is showing some slow improvement in her oxygenation. After being of 4 L, she was obtunded liters. We'll try that on room air. With activity, she desaturated. Currently she is on 2 L of oxygen by nasal cannula. She is still on Decadron. She is on REM and today's of final day of treatment which is day #5. The chest x-ray from today is still showing patchy bilateral pulmonary infiltrates perihilar, unchanged compared to the earlier chest x-ray. The inflammatory markers have have been checked and the levels are still pending for now. Renal function is stable. Creatinine is at 1.0. She is tolerating her diet. No nausea vomiting or diarrhea or abdominal pain. Had a d-dimer was at 3.5 and the patient is still on Lovenox 60 mg subcu twice a day per medical team. Objective - Vital Signs Vital signs: Vital Signs Temp 98.1 F 04/30/20 10:15 Pulse 81 04/30/20 10:15 Resp 20 04/30/20 10:15 BP 134/87 04/30/20 10:15 Pulse Ox 92 L 04/30/20 10:15 Intake & Output 04/29/20 04/30/20 04/30/20 18:59 06:59 18:59 Intake Total 1080 600 Balance 1080 600 Intake: Oral 1080 600 Other: Voiding Method Toilet Toilet Toilet # Voids 3 2 # Bowel Movements 2 - Exam GENERAL EXAM: Alert, obese, pleasant 40-year-old -[place] female patient, on 2 L nasal cannula, comfortable in no apparent distress. HEAD: Normocephalic. EYES: Normal reaction of pupils, equal size. NOSE: Clear with pink turbinates. THROAT: No erythema or exudates. NECK: No masses, no JVD. CHEST: No chest wall deformity. LUNGS: Equal air entry with bilateral scattered rhonchi, crackles in the posterior bases. CVS: S1 and S2 normal with no audible murmur, regular rhythm. ABDOMEN: No hepatosplenomegaly, normal bowel sounds, no guarding or rigidity. SPINE: No scoliosis or deformity SKIN: No rashes CENTRAL NERVOUS SYSTEM: No focal deficits, tone is normal in all 4 extremities. EXTREMITIES: There is no peripheral edema. No clubbing, no cyanosis. Peripheral pulses are intact. - Labs CBC & Chem 7: 04/30/20 07:14 04/30/20 07:14 Labs: Abnormal Lab Results - Last 24 Hours (Table) 04/30/20 04/30/20 04/30/20 Range/Units 00:08 07:14 07:14 Hgb 8.4 L (12.0-15.0) g/dL Hct 32.5 L (37.2-46.3) % MCV 66.9 L (80.0-97.0) fL MCH 17.3 L (27.0-32.0) pg MCHC 25.8 L (32.0-37.0) g/dL RDW 26.2 H (11.5-14.5) % Plt Count 465 H (140-440) X 10*3/uL Immature Gran # 0.20 H (0.00-0.04) X 10*3/uL Monocytes # 1.12 H (0.20-1.00) X 10*3/uL Eosinophils # 0 L (0.04-0.35) X 10*3/uL Anion Gap 12.50 H (4.00-12.00) mmol/L BUN 31.0 H (9.0-27.0) mg/dL BUN/Creatinine Ratio 31.00 H (12.00-20.00) Ratio POC Glucose (mg/dL) 167 H (75-99) mg/dL Calcium 8.2 L (8.7-10.3) mg/dL Assessment and Plan Plan: 1 Acute hypoxemic respiratory failure secondary to acute CoVID 19 pneumonia, currently on 2 L of oxygen by nasal cannula. Currently the patient is on a combination of Decadron, Remdesivir #5, and the patient is also on Lovenox for DVT prophylaxis. 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 continue dexamethasone, vitamins supplements Repeat inflammatory markers tomorrow Titrate the FiO2 as tolerated. Unable to get rid of the oxygen, the patient should be considered of going home along with home oxygen therapy to be followed up on outpatient basis. It final decision will be done with the next 24 hours. She is rather stable for now. We will continue to follow and make further recommendations based on her clinical status
--- NOTE | 2020-04-30 14:21 | XR ---
EXAMINATION TYPE: XR chest 1V portable DATE OF EXAM: 04/30/2020 COMPARISON: 04/29/2020 INDICATION: Follow-up clavicular, short of breath TECHNIQUE: Single frontal view of the chest is obtained. FINDINGS: The heart size is normal. The pulmonary vasculature is normal. Patchy bilateral lung infiltrates are present, can be compatible with atypical pneumonia. Findings ar e worsening over the interval IMPRESSION: 1. Worsening scattered bilateral lung infiltrates can be compatible with atypical pneumonia
[2020-04-30] MEDS: SODIUM CHLORIDE 0.9% 1,000 ML IV SCH (19:34)
[2020-04-30] MEDS: MELATONIN 3 MG TABLET PO SCH (20:03)
[2020-04-30] MEDS: REMDESIVIR 100 MG in SODIUM CHLORIDE 0.9% 250 ML IVPB SCH (20:03)
--- NOTE | 2020-05-01 01:10 | PN ---
PROGRESS NOTE DATE OF SERVICE: 04/30/2020 REASON FOR FOLLOWUP: COVID-19 pneumonia. INTERVAL HISTORY: Patient is currently afebrile. The patient is breathing comfortably, currently on room air. Sating about 92%. The patient denies any chest pain or shortness of breath. No cough. No abdominal pain. No diarrhea. PHYSICAL EXAMINATION: Blood pressure 132/79, pulse of 94, temperature 98.6. He is 98% on room air. General description is a middle-aged female lying in bed in no distress. Respiratory system: Unlabored breathing, decreased breath sounds in the base, with no wheeze. Heart S1, S2. Regular rate and rhythm. ABDOMEN: Soft, no tenderness. LABS: Hemoglobin 8.4, white count 8.52, BUN of 31, creatinine is 1.0. DIAGNOSTIC IMPRESSION/PLAN: Patient with acute COVID-19 pneumonia in this patient who completed her Remdesivir therapy. The patient is currently on dexamethasone, Lovenox, zinc to continue along with respiratory support and monitor clinical course closely. MMODL / IJN: [id number] /
[2020-05-01] MEDS: ZINC SULFATE 220 MG CAP PO SCH (08:16)
[2020-05-01] MEDS: ASCORBIC ACID 500 MG TAB PO SCH (08:16)
[2020-05-01] MEDS: CHOLECALCIFEROL 25 MCG (1000 IU) TABLET PO SCH (08:16)
[2020-05-01] MEDS: DEXAMETHASONE SOD PHOSPHATE 10 MG/ML 1 ML VIAL IV SCH (08:16)
[2020-05-01] MEDS: ENOXAPARIN 60 MG/0.6 ML SYRINGE SQ SCH (08:17)
--- NOTE | 2020-05-01 14:21 | P.PN ---
Subjective Progress Note Date: 05/01/20 This is a very pleasant 40-year-old obese female patient with no significant past medical history. No home medications. 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 Approximately 9 days ago now she started having increasing shortness of breath, cough, congestion, fever. Chest x-ray reveals bilateral infiltrates suspicious for CoVID 19 pneumonia. She did test positive for the coronavirus. White count 7.0. Hemoglobin 9.0. Lymphocytes 0.8. D-dimer 1.64. Sodium 137. Potassium 4.2. Creatinine 1.68. C-reactive protein 83.3. He is seen today in consultation on the regular medical floor. She is currently resting in bed. Awake and alert in no acute distress. She is still quite dyspneic with minimal exertion. She is requiring 5 L high flow nasal cannula to maintain O2 saturations in the 90s. 0.9 normal saline at 75 ML's per hour. She had not received any vaccines. She was seen by ID services and received Remdesivir just after midnight this morning. She is initiated on Decadron, Lovenox, vitamin supplements. 04/28/2020 this patient was hospitalized for acute hypoxic respiratory failure secondary to obesity-related pneumonia and the patient is being seen in follow- up. The patient is currently on a combination of steroids in the form of Decadr on and the patient is also receiving Remdesivir. The patient is morbidly obese with a BMI of 40. The patient had an acute kidney injury at time of admission and currently is being hydrated. 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 Otherwise, the patient is currently on oxygen at 5 L of Oxymizer nasal cannula with a pulse ox of 91%. The chest x-ray showing bilateral infiltrates suspicious for pneumonia. The inflammatory markers will be monitored. The patient is also on Lovenox for DVT prophylaxis for d-dimer of 1.64. She is currently receiving Lovenox 40 mg subcu every 24 hours. The chest x-ray still showing bilateral pulmonary infiltrates. There may be some slight improvement in aeration of the lung bases bilaterally. There are renal function is to be repeated as the patient's creatinine at time of admission was at 1.68. The patient remains on IV fluids with 35 mL an hour of normal saline. 04/29/2020, I'm seeing the patient for a follow-up. The patient is currently on 4 L of oxygen by nasal cannula. She is afebrile. She is morbidly obese female patient who carries a body mass index of 40 and she has Covid activated pneumonia. She is currently on a combination of Decadron and the REM and she is on day #4. The blood work from today is showing a d-dimer of 3.5 and the patient is on a higher dose of Lovenox which is 60 mg subcutaneous twice a day. She is also demonstrating a normal electrolytes, normal renal function, inflammatory markers are done yesterday and there were not repeated today. Overall condition is stable for now. Chest x-ray findings from today is showing probably some limited improvement in the bilateral pulmonary infiltrates knowing that there is some improved aeration. She remains on IV fluids with normal saline at the rate of KVO. No other significant events overnight. 04/30/2020 the patient is showing some slow improvement in her oxygenation. After being of 4 L, she was obtunded liters. We'll try that on room air. With activity, she desaturated. Currently she is on 2 L of oxygen by nasal cannula. She is still on Decadron. She is on REM and today's of final day of treatment which is day #5. The chest x-ray from today is still showing patchy bilateral pulmonary infiltrates perihilar, unchanged compared to the earlier chest x-ray. The inflammatory markers have have been checked and the levels are still pending for now. Renal function is stable. Creatinine is at 1.0. She is tolerating her diet. No nausea vomiting or diarrhea or abdominal pain. Had a d-dimer was at 3.5 and the patient is still on Lovenox 60 mg subcu twice a day per medical team. 05/01/2020 patient seen in follow-up on medical surgical floor, he is on 2 L of oxygen her pulse ox is 94%, yesterday she did desat with the ambulation, she didn't qualify for home oxygen, his been tolerating ambulation, she denies any worsening dyspnea, no chest discomfort. Her appetite is fair, she's had no acute events overnight, and no specific complaints. No new labs today, yesterday's labs showed improving d-dimer down to 2.12, her last chest x-ray from 04/30/2020 showed patchy bilateral lung infiltrates with some worsening. B ut clinically patient has remained stable, she has completed a course of Remdesivir, she remains on vitamin cocktail, prophylactic Lovenox, and IV dexamethasone. As the possibility of possibly staying another night however patient wants to go home Objective - Vital Signs Vital signs: Vital Signs Temp 98.3 F 05/01/20 11:00 Pulse 82 05/01/20 11:00 Resp 16 05/01/20 11:00 BP 138/90 05/01/20 11:00 Pulse Ox 94 L 05/01/20 11:00 Intake & Output 04/30/20 05/01/20 05/01/20 18:59 06:59 18:59 Intake Total 1200 Balance 1200 Intake: Oral 1200 Other: Voiding Method Toilet Toilet Toilet # Voids 3 2 # Bowel Movements 2 - Exam GENERAL EXAM: Alert, very pleasant, 40-year-old -[place] female, on 2 L of oxygen and the pulse ox of 94% comfortable in no apparent distress. HEAD: Normocephalic/atraumatic. EYES: Normal reaction of pupils, equal size. Conjunctiva pink, sclera white. NOSE: Clear with pink turbinates. THROAT: No erythema or exudates. NECK: No masses, no JVD, no thyroid enlargement, no adenopathy. CHEST: No chest wall deformity. Symmetrical expansion. LUNGS: Equal air entry with bilateral crackles, but no wheeze, rhonchi or dullness. CVS: Regular rate and rhythm, normal S1 and S2, no gallops, no murmurs, no rubs ABDOMEN: Soft, nontender. No hepatosplenomegaly, normal bowel sounds, no guarding or rigidity. EXTREMITIES: No clubbing, no edema, no cyanosis, 2+ pulses and upper and lower extremities. MUSCULOSKELETAL: Muscle strength and tone normal. SPINE: No scoliosis or deformity SKIN: No rashes CENTRAL NERVOUS SYSTEM: Alert and oriented -3. No focal deficits, tone is normal in all 4 extremities. PSYCHIATRIC: Alert and oriented -3. Appropriate affect. Intact judgment and insight. - Labs CBC & Chem 7: 04/30/20 07:14 04/30/20 07:14 Labs: Abnormal Lab Results - Last 24 Hours (Table) 04/30/20 Range/Units 13:50 D-Dimer 2.12 H (<0.60) mg/L FEU Assessment and Plan Plan: Assessment: 1 Acute hypoxemic respiratory failure secondary to acute CoVID 19 pneumonia, currently on 2 L of oxygen by nasal cannula. 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 No need for anticoagulation, patient was advised to be active, and avoiding being sedentary, memory is improving, she's had no fever or chills, she will need to see Dr. Bean in follow-up in 2 weeks I performed a history & physical examination of the patient and discussed their management with my nurse practitioner, Hyacinth Chino. I reviewed the nurse practitioner's note and agree with the documented findings and plan of care. Lung sounds are positive for diminshed breath sounds. The findings and the impression was discussed with the patient. I attest to the documentation by the nurse practitioner. Time with Patient: Less than 30
[2020-05-01 15:07] VITALS: BP 146/94; PULSE 94; RESP 20; TEMP 98.2
--- NOTE | 2020-05-01 17:41 | PN ---
PROGRESS NOTE DATE OF SERVICE: 05/01/2020 REASON FOR FOLLOWUP: COVID-19 infection. INTERVAL HISTORY: The patient was seen on rounds early this afternoon. The patient has been afebrile. She has been breathing more comfortably, still requiring 2 L nasal cannula. The patient denies having chest pain. Minimal cough. No abdominal pain or diarrhea. PHYSICAL EXAMINATION: Blood pressure 146/94 with a pulse of 94, temperature 98.2. She is 99% on 2 L nasal cannula. General description is a middle-aged female up in the bed in no distress. RESPIRATORY SYSTEM: Unlabored breathing with decreased intensity of breath sounds. No wheeze. HEART: S1, S2. Regular rate and rhythm. ABDOMEN: Soft. No tenderness. LABS: No new labs have been obtained today. DIAGNOSTIC IMPRESSION AND PLAN: Patient with acute COVID-19 infection. Patient completed her remdesivir therapy. Overall improvement, still requiring slight supplemental oxygen. She is currently being discharged on home oxygen in addition to a short course of Decadron and close outpatient followup. MMODL / IJN: [id number] /
== END 2020-05-01 16:45 | disposition home or self-care (01) | DRG 177 ==
LOC: EC 12:36 → 4SSUR 14:15
PROVIDERS: ADMIT Internal Medicine; ATTEND Internal Medicine
PROC: XW033E5 Introduction of Remdesivir Anti-infective into Peripheral Vein, Percutaneous Approach, New Technology Group 5 (ICD-10-PCS; principal; 2020-04-26)
DX: U07.1 COVID-19 (principal); J12.82 Pneumonia due to coronavirus disease 2019; J96.01 Acute respiratory failure with hypoxia; N17.9 Acute kidney failure, unspecified; Z68.41 Body mass index [BMI] 40.0-44.9, adult; E66.01 Morbid (severe) obesity due to excess calories; D72.810 Lymphocytopenia; E86.0 Dehydration; Z87.19 Personal history of other diseases of the digestive system; Z98.891 History of uterine scar from previous surgery; Z71.3 Dietary counseling and surveillance
CPT/HCPCS: 36415; 71045; 80048; 80053; 81001; 83605; 83615; 83735; 85025; 85379; 85610; 85730; 86140; 87086; 87635; 93005; 94760; 96361; 96374; 99285